=== PATIENT | female | born 1960 | race Caucasian/White ===

== ENCOUNTER 2019-03-04 10:35 | Emergency (ER) | payer OTHER ==
[~2019-03-04] VITALS: Ht 162.6 cm; Wt 113.8 kg
--- NOTE | 2019-03-04 11:10 | NUR ---
PT MOVED TO ROOM AT THIS TIME
[2019-03-04 11:14] LABS: MEAN CORPUSCULAR HEMOGLOBIN 27.7 pg (27.0-34.8); MEAN CORPUSCULAR HGB CONC 32.6 g/dL (32.4-35.8); MEAN CORPUSCULAR VOLUME 84.8 fL (80-100); MEAN PLATELET VOLUME 7.7 fL (7.4-10.4); PLATELET COUNT 162 x10^3/uL (130-400); RED CELL DISTRIBUTION WIDTH 15.8 % (9.6-15.2)
[2019-03-04 11:26] LABS: ALANINE AMINOTRANSFERASE 161 U/L (12-78); ALBUMIN 2.8 g/dL (3.4-5.0); ANION GAP 8 mmol/L (5-15); CALCIUM 8.3 mg/dL (8.5-10.1); CHLORIDE 106 mmol/L (98-107); CREATININE 2.48 mg/dL (0.55-1.02)
[2019-03-04 11:31] LABS: ALKALINE PHOSPHATASE 219 U/L (45-117); BILIRUBIN,TOTAL 0.5 mg/dL (0.2-1.0); TOTAL PROTEIN 7.6 g/dL (6.4-8.2); TROPONIN I < 0.015 ng/mL (0.000-0.045)
--- NOTE | 2019-03-04 11:31 | NUR ---
PT CAME IN CO OF [place] FOR THE PAST 2 WEEKS. BOWEL MOVEMENTS HAVE BEEN INCONSISTENT AND ABNORMAL FOR HER. FEELS IF SHE HAS BEEN CONSTIPATED. MD IS BEDSIDE. EKG DONE.
[2019-03-04 11:38] LABS: BASOPHILS # (AUTO) 0.06 x10^3/uL (0-0.1); BASOPHILS % (AUTO) 1 % (0-1); EOSINOPHILS # (AUTO) 0.04 x10^3/uL (0-0.4); EOSINOPHILS % (AUTO) 0 % (1-7); LYMPHOCYTES # (AUTO) 6.52 x10^3/uL (1-3.4); LYMPHOCYTES % (AUTO) 69 % (22-44); MD SCAN; MONOCYTES # (AUTO) 0.48 x10^3/uL (0.2-0.8); MONOCYTES % (AUTO) 5 % (2-9); NEUTROPHILS # (AUTO) 2.29 x10^3/uL (1.8-6.8); NEUTROPHILS % (AUTO) 24 % (42-75)
--- NOTE | 2019-03-04 12:05 | NUR ---
Aníbal tyler in ED - 03/04/19 at 1205 by CODY PT IS RESTING IN HOSPITAL BED. SON IS BEDSIDE WITH HOSPITALIST.
--- NOTE | 2019-03-04 12:33 | NUR ---
US IN WITH PT
[2019-03-04 14:03] VITALS: BP 186/72
--- NOTE | 2019-03-04 14:12 | NUR ---
PT AT NM FOR VQ SCAN
--- NOTE | 2019-03-04 15:11 | NUR ---
BREAK RN: Patient/Caregiver given discharge instructions and they have confirmed that they understand the instructions. Patient ambulatory with steady gait.
== END 2019-03-04 15:12 | disposition home or self-care (01) ==
LOC: ED 12:49
DX: R06.00 Dyspnea, unspecified (principal); K80.20 Calculus of gallbladder without cholecystitis without obstruction; I11.0 Hypertensive heart disease with heart failure; N18.2 Chronic kidney disease, stage 2 (mild); E11.22 Type 2 diabetes mellitus with diabetic chronic kidney disease; K59.00 Constipation, unspecified; R94.5 Abnormal results of liver function studies
CPT/HCPCS: 36415; 74022; 76700; 78582; 80053; 83880; 84484; 85025; 85379; 93005; 93970; 99284; A9540; A9558; C9898

== ENCOUNTER 2019-03-25 16:52 | Inpatient (IN) | payer OTHER ==
[~2019-03-25] VITALS: Ht 162.6 cm; Wt 110.5 kg
--- NOTE | 2019-03-25 17:29 | NUR ---
eldon. report received from ems. pt c/o painful rash around left sided vaginal/groin area and dryheaving. no vb/vd. 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 pt's aox4. resps even and unlabored. bp/spo2 monitors in place. call light within reach. pa at bedside to evaluate at this time.
[2019-03-25] MEDS ORDERED: FLUCONAZOLE 100 MG TABLET PO STA (17:30)
[2019-03-25] MEDS ORDERED: SODIUM CHLORIDE FLUSH 10ML SYR IVF ONE (17:30)
[2019-03-25] MEDS ORDERED: SODIUM CHLORIDE 0.9% 1,000ML IVBOLUS ONE (17:30)
[2019-03-25] MEDS ORDERED: FLUCONAZOLE 100 MG TABLET ONE (17:50)
--- NOTE | 2019-03-25 17:55 | NUR ---
PT AMB TO BR WITH STEADY GAIT FOR UA.
[2019-03-25 18:06] LABS: BASOPHILS # (AUTO) 0.01 x10^3/uL (0-0.1); BASOPHILS % (AUTO) 0 % (0-1); EOSINOPHILS % (AUTO) 1 % (1-7); LYMPHOCYTES # (AUTO) 1.27 x10^3/uL (1-3.4); LYMPHOCYTES % (AUTO) 8 % (22-44); MD NO; MEAN CORPUSCULAR HEMOGLOBIN 27.8 pg (27.0-34.8); MEAN CORPUSCULAR HGB CONC 33.1 g/dL (32.4-35.8); MEAN CORPUSCULAR VOLUME 83.9 fL (80-100); MEAN PLATELET VOLUME 7.5 fL (7.4-10.4); MONOCYTES # (AUTO) 0.41 x10^3/uL (0.2-0.8); MONOCYTES % (AUTO) 3 % (2-9); NEUTROPHILS # (AUTO) 14.87 x10^3/uL (1.8-6.8); NEUTROPHILS % (AUTO) 89 % (42-75); PLATELET COUNT 257 x10^3/uL (130-400); RED BLOOD COUNT 4.27 x10^6/uL (3.82-5.3); RED CELL DISTRIBUTION WIDTH 15.4 % (9.6-15.2)
--- NOTE | 2019-03-25 18:07 | NUR ---
pt medicated per emar. pt tolerated well. ns infusing at this time.
[2019-03-25 18:10] LABS: ALANINE AMINOTRANSFERASE 21 U/L (12-78); ALBUMIN 2.4 g/dL (3.4-5.0); ANION GAP 8 mmol/L (5-15); CALCIUM 8.6 mg/dL (8.5-10.1); CHLORIDE 103 mmol/L (98-107); CREATININE 1.39 mg/dL (0.55-1.02)
--- NOTE | 2019-03-25 18:11 | NUR ---
PT PROVIDED URINE SAMPLE AT THIS TIME. THIS RN WALKED TO LAB FOR UA.
[2019-03-25 18:12] LABS: ALKALINE PHOSPHATASE 108 U/L (45-117); BILIRUBIN,TOTAL 0.5 mg/dL (0.2-1.0); TOTAL PROTEIN 7.3 g/dL (6.4-8.2)
--- NOTE | 2019-03-25 18:57 | NUR ---
pt resting in [facility]. pt's aox4. resps even and unlabored. bp/spo2 monitors in place. call light within reach.
[2019-03-25 18:58] LABS: CULTURE INDICATED? YES; MICROSCOPIC INDICATED
--- NOTE | 2019-03-25 18:59 | NUR ---
WARM BLANCKET GIVEN AT THIS TIME.
--- NOTE | 2019-03-25 19:00 | NUR ---
BEDSIDE REPORT FROM RIYA HAMMONDS. PT RESTING IN [facility] NOTED.
[2019-03-25] MEDS ORDERED: AMLO-150 PO (19:25)
[2019-03-25] MEDS ORDERED: INSULIN (19:25)
[2019-03-25] MEDS ORDERED: ONDA4TAB13 SL (19:25)
[2019-03-25] MEDS ORDERED: LOSA100T14 PO (19:25)
[2019-03-25] MEDS ORDERED: SERT100T32 PO (19:25)
[2019-03-25] MEDS ORDERED: IRBE75TA10 PO (19:25)
[2019-03-25] MEDS ORDERED: CEFTRIAXONE PMX 1GM/50ML 50 ML IV ONE ×2 (19:30→22:30)
[2019-03-25] MEDS ORDERED: CEFTRIAXONE PMX 1GM/50ML 50 ML ONE (19:35)
--- NOTE | 2019-03-25 19:39 | NUR ---
ABX INITIATED. BC X2 DRAWN PRIOR TO ADMIN. POC IS ADMIT, PT AWARE AND DEMONSTRATES UNDERSTANDING. BP/SPO2 MONITORING IN PLACE
--- NOTE | 2019-03-25 20:18 | NUR ---
PT AMBULATED STEADILY TO BATHROOM. LINENS WET. CLEAN LINENS IN PLACE. AWAITING ADMIT
--- NOTE | 2019-03-25 20:49 | NUR ---
PT TO BE HELD IN ED UNTIL BED BECOMES AVAILABLE. PT UPDATED.
--- NOTE | 2019-03-25 20:59 | NUR ---
PT W DRY HEAVING. REFUSING NAUSEA MEDICATIONS. PT ASSISTED TO CHAIR AT BEDSIDE FOR COMFORT.
--- NOTE | 2019-03-25 21:27 | NUR ---
PT CONTINUES TO SIT IN CHAIR AT BEDSIDE. DENIES NEEDS.
--- NOTE | 2019-03-25 21:45 | NUR ---
PT W/ ELEVATED BP, SBP 180. PT REPORTS "THAT IS ABOUT MY NORMAL". DENIES KWONG/CP/SOB.
--- NOTE | 2019-03-25 22:07 | NUR ---
REPORT TO RIYA ANTHONY. PT PREPARED FOR TRANSPORT
[2019-03-25] MEDS ORDERED: ONDANSETRON ODT 4 MG SL SCH (22:30)
[2019-03-25] MEDS ORDERED: BISACODYL 10 MG SUPP PR PRN (22:30)
[2019-03-25 23:11] VITALS: BP 137/84
[2019-03-26] MEDS: HEPARIN 5,000 UNITS/ML, 1ML SQ SCH ×3 (00:04→16:22)
[2019-03-26] MEDS: INSULIN LISPRO 100 UNITS/ML, PEN SQ-INSULIN SCH ×5 (00:53→21:40)
[2019-03-26] MEDS: NYSTATIN TOPICAL POWDER 15GM TP SCH ×5 (00:54→21:41)
[2019-03-26] MEDS ORDERED: PHARMACY MAY ADJ FOR RENAL FX MC PRN (02:00)
[2019-03-26 02:09] VITALS: BP 154/80
[2019-03-26] MEDS ORDERED: ONDANSETRON ODT 4 MG SL PRN (04:00)
[2019-03-26 04:55] LABS: MEAN CORPUSCULAR HEMOGLOBIN 27.4 pg (27.0-34.8); MEAN CORPUSCULAR HGB CONC 32.1 g/dL (32.4-35.8); MEAN CORPUSCULAR VOLUME 85.4 fL (80-100); MEAN PLATELET VOLUME 7.3 fL (7.4-10.4); PLATELET COUNT 243 x10^3/uL (130-400); RED BLOOD COUNT 4.07 x10^6/uL (3.82-5.3); RED CELL DISTRIBUTION WIDTH 15.5 % (9.6-15.2)
[2019-03-26 04:57] LABS: ANION GAP 8 mmol/L (5-15); CALCIUM 8.3 mg/dL (8.5-10.1); CHLORIDE 103 mmol/L (98-107); CREATININE 1.46 mg/dL (0.55-1.02)
[2019-03-26 05:38] LABS: MD YES
[2019-03-26 05:40] LABS: <PLATELET ESTIMATE> ADEQUATE; <PLT MORPHOLOGY> NORMAL PLT MORPH; <RBC MORPHOLOGY> NORMAL; BAND#(MANUAL) 2.03 x10^3/uL; BANDS%(MANUAL) 10 % (0-7); LYMPH#(MANUAL) 3.05 x10^3/uL (1-3.4); LYMPHS% (MANUAL) 15 % (22-44); MONOS#(MANUAL) 0.41 x10^3/uL (0.3-2.7); MONOS% (MANUAL) 2 % (2-9); MYELOCYTES% (MANUAL) 1 % (0-0); SEG#(MANUAL) 14.62 x10^3/uL (1.8-6.8); SEGS% (MANUAL) 72 % (42-75)
[2019-03-26 07:41] VITALS: BP 145/85
[2019-03-26] MEDS: SERTRALINE 100MG TABLET PO SCH (08:16)
[2019-03-26] MEDS: FLUCONAZOLE 200 MG TABLET PO SCH (08:16)
[2019-03-26] MEDS: LOSARTAN 100 MG TAB PO SCH (08:17)
[2019-03-26] MEDS ORDERED: LOSARTAN 25MG TABLET PO SCH (09:00)
[2019-03-26] MEDS: AMPICILLIN/SULBACTAM 3 GM in SODIUM CHLORIDE 0.9% 100 ML IV SCH ×2 (09:16→16:23)
[2019-03-26] MEDS ORDERED: VANCOMYCIN PER PHARMACY MC PRN (11:00)
[2019-03-26] MEDS: SODIUM CHLORIDE 0.9% 1,000 ML IV SCH ×3 (11:20→23:24)
[2019-03-26] MEDS ORDERED: PHARMACOKINETIC MONITORING MC PRN (11:30)
[2019-03-26] MEDS ORDERED: PHARMACOKINETIC CONSULTATION MC ONE (11:30)
[2019-03-26] MEDS ORDERED: VANCOMYCIN 1,600 MG in SODIUM CHLORIDE 0.9% 250 ML IV SCH (12:00)
[2019-03-26] MEDS: INSULIN GLARGINE 100 UNITS/ML, PEN SQ-INSULIN SCH ×2 (12:29→21:41)
[2019-03-26 12:49] VITALS: BP 137/84
[2019-03-26 18:59] VITALS: BP 132/83
[2019-03-26] MEDS ORDERED: CEFTRIAXONE PMX 1GM/50ML 50 ML IV SCH (22:30)
[2019-03-27] MEDS: AMPICILLIN/SULBACTAM 3 GM in SODIUM CHLORIDE 0.9% 100 ML IV SCH ×3 (00:25→17:39)
[2019-03-27] MEDS: HEPARIN 5,000 UNITS/ML, 1ML SQ SCH ×3 (00:25→17:39)
[2019-03-27 00:29] VITALS: BP 139/86
[2019-03-27 06:42] LABS: ALBUMIN 1.8 g/dL (3.4-5.0); ANION GAP 7 mmol/L (5-15); BASOPHILS # (AUTO) 0.05 x10^3/uL (0-0.1); BASOPHILS % (AUTO) 0 % (0-1); CALCIUM 7.9 mg/dL (8.5-10.1); CHLORIDE 108 mmol/L (98-107); EOSINOPHILS # (AUTO) 0.27 x10^3/uL (0-0.4); EOSINOPHILS % (AUTO) 2 % (1-7); LYMPHOCYTES # (AUTO) 3.51 x10^3/uL (1-3.4); LYMPHOCYTES % (AUTO) 30 % (22-44); MD NO; MEAN CORPUSCULAR HEMOGLOBIN 27.4 pg (27.0-34.8); MEAN CORPUSCULAR HGB CONC 32.3 g/dL (32.4-35.8); MEAN CORPUSCULAR VOLUME 84.9 fL (80-100); MEAN PLATELET VOLUME 7.3 fL (7.4-10.4); MONOCYTES # (AUTO) 0.82 x10^3/uL (0.2-0.8); MONOCYTES % (AUTO) 7 % (2-9); NEUTROPHILS # (AUTO) 7.07 x10^3/uL (1.8-6.8); NEUTROPHILS % (AUTO) 60 % (42-75); PLATELET COUNT 199 x10^3/uL (130-400); RED BLOOD COUNT 3.67 x10^6/uL (3.82-5.3); RED CELL DISTRIBUTION WIDTH 15.4 % (9.6-15.2)
[2019-03-27] MEDS: NYSTATIN TOPICAL POWDER 15GM TP SCH ×4 (06:43→21:21)
[2019-03-27 06:48] LABS: ALANINE AMINOTRANSFERASE 13 U/L (12-78); ALKALINE PHOSPHATASE 86 U/L (45-117); CREATININE 1.26 mg/dL (0.55-1.02); TOTAL PROTEIN 6.4 g/dL (6.4-8.2)
[2019-03-27] MEDS: INSULIN LISPRO 100 UNITS/ML, PEN SQ-INSULIN SCH ×4 (07:00→21:21)
[2019-03-27 07:05] VITALS: BP 132/81
[2019-03-27] MEDS: SERTRALINE 100MG TABLET PO SCH (07:52)
[2019-03-27] MEDS: FLUCONAZOLE 200 MG TABLET PO SCH (07:52)
[2019-03-27] MEDS: LOSARTAN 100 MG TAB PO SCH (07:54)
[2019-03-27] MEDS: SODIUM CHLORIDE 0.9% 1,000 ML IV SCH ×3 (11:43→18:12)
[2019-03-27] MEDS: INSULIN GLARGINE 100 UNITS/ML, PEN SQ-INSULIN SCH ×2 (11:44→21:21)
[2019-03-27 12:27] VITALS: BP 131/81
[2019-03-27] MEDS ORDERED: VANCOMYCIN 1,600 MG in SODIUM CHLORIDE 0.9% 250 ML IV SCH (15:00)
[2019-03-27 20:20] VITALS: BP 126/83
[2019-03-28] MEDS: SODIUM CHLORIDE 0.9% 1,000 ML IV SCH ×2 (01:33→13:51)
[2019-03-28] MEDS: AMPICILLIN/SULBACTAM 3 GM in SODIUM CHLORIDE 0.9% 100 ML IV SCH ×4 (01:33→21:32)
[2019-03-28] MEDS: HEPARIN 5,000 UNITS/ML, 1ML SQ SCH ×3 (01:33→17:23)
[2019-03-28 02:10] VITALS: BP 132/80
[2019-03-28] MEDS: NYSTATIN TOPICAL POWDER 15GM TP SCH ×4 (05:45→21:31)
[2019-03-28] MEDS: INSULIN LISPRO 100 UNITS/ML, PEN SQ-INSULIN SCH ×4 (07:00→21:31)
[2019-03-28 07:54] VITALS: BP 148/80
[2019-03-28 09:16] LABS: MEAN CORPUSCULAR HEMOGLOBIN 27.6 pg (27.0-34.8); MEAN CORPUSCULAR HGB CONC 32.3 g/dL (32.4-35.8); MEAN CORPUSCULAR VOLUME 85.4 fL (80-100); PLATELET COUNT 223 x10^3/uL (130-400)
[2019-03-28 09:44] LABS: BASOPHILS # (AUTO) 0.05 x10^3/uL (0-0.1); BASOPHILS % (AUTO) 1 % (0-1); EOSINOPHILS # (AUTO) 0.31 x10^3/uL (0-0.4); EOSINOPHILS % (AUTO) 5 % (1-7); LYMPHOCYTES # (AUTO) 2.57 x10^3/uL (1-3.4); LYMPHOCYTES % (AUTO) 37 % (22-44); MD SCAN; MONOCYTES % (AUTO) 7 % (2-9); NEUTROPHILS # (AUTO) 3.44 x10^3/uL (1.8-6.8); NEUTROPHILS % (AUTO) 50 % (42-75)
[2019-03-28] MEDS: LOSARTAN 100 MG TAB PO SCH (10:08)
[2019-03-28] MEDS: INSULIN GLARGINE 100 UNITS/ML, PEN SQ-INSULIN SCH ×2 (10:08→21:31)
[2019-03-28] MEDS: FLUCONAZOLE 200 MG TABLET PO SCH (10:08)
[2019-03-28] MEDS: SERTRALINE 100MG TABLET PO SCH (10:08)
[2019-03-28 10:58] LABS: ANION GAP 5 mmol/L (5-15); CALCIUM 8.1 mg/dL (8.5-10.1); CHLORIDE 109 mmol/L (98-107)
[2019-03-28 11:00] LABS: CREATININE 1.11 mg/dL (0.55-1.02)
[2019-03-28 12:13] VITALS: BP 151/81
[2019-03-28 19:04] VITALS: BP 157/86
[2019-03-29 00:43] VITALS: BP 132/75
[2019-03-29] MEDS: HEPARIN 5,000 UNITS/ML, 1ML SQ SCH ×3 (01:41→17:11)
[2019-03-29 05:06] LABS: MEAN CORPUSCULAR HEMOGLOBIN 27.4 pg (27.0-34.8); MEAN CORPUSCULAR HGB CONC 32.5 g/dL (32.4-35.8); MEAN CORPUSCULAR VOLUME 84.3 fL (80-100); MEAN PLATELET VOLUME 7.7 fL (7.4-10.4); PLATELET COUNT 212 x10^3/uL (130-400); RED BLOOD COUNT 3.46 x10^6/uL (3.82-5.3); RED CELL DISTRIBUTION WIDTH 16.2 % (9.6-15.2)
[2019-03-29] MEDS: SODIUM CHLORIDE 0.9% 1,000 ML IV SCH ×3 (05:08→20:44)
[2019-03-29] MEDS: NYSTATIN TOPICAL POWDER 15GM TP SCH ×4 (05:08→20:44)
[2019-03-29] MEDS: AMPICILLIN/SULBACTAM 3 GM in SODIUM CHLORIDE 0.9% 100 ML IV SCH ×2 (05:08→12:57)
[2019-03-29 05:21] LABS: ANION GAP 5 mmol/L (5-15); CALCIUM 8.2 mg/dL (8.5-10.1); CHLORIDE 110 mmol/L (98-107)
[2019-03-29 05:24] LABS: CREATININE 0.98 mg/dL (0.55-1.02)
[2019-03-29 05:47] LABS: MD YES
[2019-03-29 05:50] LABS: BAND#(MANUAL) 0.12 x10^3/uL; BANDS%(MANUAL) 2 % (0-7); BASOS#(MANUAL) 0.12 x10^3/uL (0-0.1); BASOS% (MANUAL) 2 % (0-1); EOS#(MANUAL) 0.19 x10^3/uL (0.0-0.4); EOS% (MANUAL) 3 % (1-7); LYMPH#(MANUAL) 2.29 x10^3/uL (1-3.4); LYMPHS% (MANUAL) 37 % (22-44); METAMYELOCYTES# (MANUAL) 0.19 x10^3/uL (0-0); METAMYELOCYTES% (MANUAL) 3 % (0-1); MONOS#(MANUAL) 0.31 x10^3/uL (0.3-2.7); MONOS% (MANUAL) 5 % (2-9); SEG#(MANUAL) 2.98 x10^3/uL (1.8-6.8); SEGS% (MANUAL) 48 % (42-75)
[2019-03-29 05:51] LABS: <PLATELET ESTIMATE> ADEQUATE; <PLT MORPHOLOGY> NORMAL PLT MORPH; POLYCHROMASIA 1+
[2019-03-29] MEDS: INSULIN LISPRO 100 UNITS/ML, PEN SQ-INSULIN SCH ×4 (07:24→20:43)
[2019-03-29 07:39] VITALS: BP 143/81
[2019-03-29] MEDS: SERTRALINE 100MG TABLET PO SCH (08:46)
[2019-03-29] MEDS: LOSARTAN 100 MG TAB PO SCH (08:46)
[2019-03-29] MEDS: INSULIN GLARGINE 100 UNITS/ML, PEN SQ-INSULIN SCH ×2 (08:46→20:44)
[2019-03-29 14:06] VITALS: BP 152/79
[2019-03-29] MEDS ORDERED: VANCOMYCIN PER PHARMACY MC PRN (17:00)
[2019-03-29] MEDS: CEFTRIAXONE PMX 2GM/50ML 50 ML IV SCH (17:11)
[2019-03-29 19:22] VITALS: BP 130/62
[2019-03-30 01:41] VITALS: BP 155/72
[2019-03-30] MEDS: HEPARIN 5,000 UNITS/ML, 1ML SQ SCH ×3 (01:42→16:46)
[2019-03-30] MEDS: SODIUM CHLORIDE 0.9% 1,000 ML IV SCH (04:46)
[2019-03-30] MEDS: NYSTATIN TOPICAL POWDER 15GM TP SCH ×4 (05:39→20:50)
[2019-03-30 06:55] VITALS: BP 158/77
[2019-03-30] MEDS: INSULIN LISPRO 100 UNITS/ML, PEN SQ-INSULIN SCH ×4 (07:24→20:51)
[2019-03-30] MEDS: SERTRALINE 100MG TABLET PO SCH ×2 (08:50→09:00)
[2019-03-30] MEDS: LOSARTAN 100 MG TAB PO SCH (08:50)
[2019-03-30] MEDS: INSULIN GLARGINE 100 UNITS/ML, PEN SQ-INSULIN SCH ×2 (08:51→20:50)
[2019-03-30] MEDS ORDERED: GADOTERATE 10 MMOL/20 ML VIAL ONE (11:26)
[2019-03-30] MEDS ORDERED: GADOTERATE 2.5 MMOL/5 ML VIAL ONE (11:26)
[2019-03-30 12:58] VITALS: BP 170/83
[2019-03-30] MEDS: hydrALAzine 20 MG/ML, 1ML IVPush PRN (14:56)
[2019-03-30 15:30] VITALS: BP 162/85
[2019-03-30] MEDS: AMLODIPINE 10 MG TAB PO SCH (15:31)
[2019-03-30] MEDS: CEFTRIAXONE PMX 2GM/50ML 50 ML IV SCH (16:47)
[2019-03-30 19:36] VITALS: BP 167/82
[2019-03-31] VITALS (7 sets, daily range): BP systolic 100–187; BP diastolic 69–84
[2019-03-31] MEDS: HEPARIN 5,000 UNITS/ML, 1ML SQ SCH ×3 (01:35→17:42)
[2019-03-31] MEDS: CEFTRIAXONE PMX 2GM/50ML 50 ML IV SCH (01:44)
[2019-03-31] MEDS: NYSTATIN TOPICAL POWDER 15GM TP SCH ×3 (06:06→15:29)
[2019-03-31] MEDS: INSULIN LISPRO 100 UNITS/ML, PEN SQ-INSULIN SCH ×3 (07:23→16:35)
[2019-03-31] MEDS: hydrALAzine 20 MG/ML, 1ML IVPush PRN (07:24)
[2019-03-31] MEDS: LOSARTAN 100 MG TAB PO SCH (08:07)
[2019-03-31] MEDS: AMLODIPINE 10 MG TAB PO SCH (08:08)
[2019-03-31] MEDS: INSULIN GLARGINE 100 UNITS/ML, PEN SQ-INSULIN SCH (08:08)
[2019-03-31] MEDS ORDERED: CEFTRIAXONE PMX 2GM/50ML 50 ML IV SCH (15:00)
[2019-03-31] MEDS ORDERED: FLUC10SU PO (16:08)
[2019-03-31] MEDS ORDERED: INSU100I11 SQ-INSULIN (16:08)
[2019-03-31] MEDS ORDERED: INSU100I13 SQ-INSULIN (16:08)
[2019-03-31] MEDS ORDERED: CEFT2FRO2 IV (16:08)
[2019-03-31] MEDS ORDERED: NYST15PO2 TP (16:08)
[2019-03-31] MEDS ORDERED: CHLO25TA PO (16:08)
[2019-03-31] MEDS ORDERED: SERTRALINE 100MG TABLET PO SCH (21:00)
== END 2019-03-31 17:53 | disposition home or self-care (01) | DRG 871 ==
LOC: ED 19:34 → EDIP 21:04 → 4NW 22:16 → 4NE 03-27 17:56
PROVIDERS: ADMIT Internal Medicine; ATTEND Internal Medicine
PROC: 02HV33Z Insertion of Infusion Device into Superior Vena Cava, Percutaneous Approach (ICD-10-PCS; principal; 2019-03-31)
PROC: B5181ZA Fluoroscopy of Superior Vena Cava using Low Osmolar Contrast, Guidance (ICD-10-PCS; 2019-03-31)
PROC: B548ZZA Ultrasonography of Superior Vena Cava, Guidance (ICD-10-PCS; 2019-03-31)
DX: A40.0 Sepsis due to streptococcus, group A (principal); N17.0 Acute kidney failure with tubular necrosis; Z68.41 Body mass index [BMI] 40.0-44.9, adult; E87.1 Hypo-osmolality and hyponatremia; I13.0 Hypertensive heart and chronic kidney disease with heart failure and stage 1 through stage 4 chronic kidney disease, or unspecified chronic kidney disease; I50.30 Unspecified diastolic (congestive) heart failure; L03.115 Cellulitis of right lower limb; B37.2 Candidiasis of skin and nail; B37.3 Candidiasis of vulva and vagina; B95.4 Other streptococcus as the cause of diseases classified elsewhere; B96.89 Other specified bacterial agents as the cause of diseases classified elsewhere; E11.22 Type 2 diabetes mellitus with diabetic chronic kidney disease; E11.65 Type 2 diabetes mellitus with hyperglycemia; E66.01 Morbid (severe) obesity due to excess calories; Z88.8 Allergy status to other drugs, medicaments and biological substances; F32.9 Major depressive disorder, single episode, unspecified; I89.0 Lymphedema, not elsewhere classified; N18.9 Chronic kidney disease, unspecified; Z83.3 Family history of diabetes mellitus; Z82.49 Family history of ischemic heart disease and other diseases of the circulatory system; Z79.4 Long term (current) use of insulin; N30.90 Cystitis, unspecified without hematuria
CPT/HCPCS: 36415; 36573; 71045; 76770; 80048; 80053; 81001; 82436; 82570; 82962; 83036; 83605; 84133; 84145; 84156; 84300; 85025; 87040; 87077; 87086; 87147; 87181; 87186; 93005; 93306; 96361; 96365; G0378; J0295; J0696; J1644; J3370; Q0162; A9575; C1751; J0360; J1815; J7030; J7050; Q0177